=== PATIENT | male | born 1970 | race Caucasian/White ===

== ENCOUNTER 2020-03-05 07:40 | Outpatient (RCR) | payer OTHER, SELFPAY ==
--- NOTE | 2020-03-05 08:24 | PTOPEVAL ---
Thank you for referring Александр Franco to [facility]. Please review, sign, date and return this plan of care RMO. I agree with and certify that the following plan of care is medically necessary. Referring Physician Date Admitting Provider: Attending Provider: Yakov Melendez, PA Referring Provider: *PT Outpatient Evaluation Start: 03/05/20 06:59 Freq: Status: Active Protocol: Document 03/05/20 06:59 DOROTHY (Rec: 03/05/20 07:39 DOROTHY [email or web address]) Therapy Assessment Status Assessment Status Assessment Status Evaluation Evaluation Information Problem Diagnosis left shoulder pain Onset 08/31/19 Subjective Information Pt. reports that he has lifted Query Text:As Reported By Patient/ weight throughout his life. Family He reports that since Aug.31 he has been lifting weight aggressively. He reports that he would like to be able to bench press 405# and is currently pressing 375#. He reports no current xray. He states that he is currently not considering any surgery. He describes pain in the rear deltoid and along the brachial region and into the collarbone. He reports that his goal is to be able to exercise with improved comfort . Prior Level of Function Activity Level (Last 3 Months) Occupation call center receptionist Hand Dominance Right Activity of Daily Living Ability Independent Indoor/Home Mobility Independent Community Mobility Independent Stairs Ability Independent Functional Cognition (Planning, Shopping Independent , Taking Medications) Cooking Yes Cleaning Yes Laundry Yes Shopping Yes Driving Yes Pain Assessment Pain Scale Pain Scale Used Numeric (1 - 10) Self Report Pain Assessment Left Shoulder(s) Reported Pain Level 1 Pain Frequency Continuous Lowest Pain Intensity 1 Greatest Pain Intensity 8 Pain Aggravating Factors Lifting Other Pain Aggravating Factors taking off a shirt Pain Score Pain Score 1: Self Report Upper Extremity Range of Motion General Upper Extremity Range of Motion Gross Upper Extremity Range of Motion
== END 2020-03-26 23:59 | disposition home or self-care (01) ==
LOC: CHSPT 07:40
PROVIDERS: PCP Physician Assistant; Visit Provider Physician Assistant
DX: M25.512 Pain in left shoulder (principal)
CPT/HCPCS: 97014; 97035; 97110; 97140; 97161; 97542; G0283